=== PATIENT | male | born 1965 | race Caucasian/White ===

== ENCOUNTER 2025-01-30 16:19 | Emergency (ER) | payer BC, SELFPAY ==
--- OUTSIDE RECORDS SUMMARY | 2025-01-30 16:21 | XMS_ITS | Clinical Summary ---
Author Organization [employer] [facility] Address [address] [place] [id number] Care Team Providers Care Pet Caretaker Name Role Phone Angel Banerjee MD Primary Care Provider Stephanie Lizarraga DO Unavailable [phone] Allergies No known active allergies Medications meloxicam 15 mg tabletIndications: Bilateral primary osteoarthritis of knee TAKE 1 TABLET (15 MG) BY MOUTH ONCE DAILY. 90 Tablet 2 03/02/20 22 Active cholecalciferol (VITAMIN D3) 1,000 unit tablet Daily Active anastrozole (ARIMIDEX) 1 mg tablet TAKE 1/2 TABLET BY MOUTH ONCE WEEKLY, DAY AFTER INJECTION 04/22/20 22 Active sildenafil citrate (VIAGRA) 100 mg tabletIndications: Erectile dysfunction of organic origin TAKE ONE TABLET BY MOUTH ONCE DAILY IF NEEDED FOR ERECTILE DYSFUNCTION TAKE 30 MIN. TO 4 HOURS BEFORE SEXUAL ACTIVITY MAX 100/24HRS 9 Tablet 3 07/28/19 23 Active tadalafiL (CIALIS;ADCIRCA) 20 mg tabletIndications: Erectile dysfunction of organic origin TAKE 1 TABLET BY MOUTH ONCE DAILY IF NEEDED FOR ERECTILE DYSFUNCTION. TAKE 30 MINUTES BEFORE SEXUAL ACTIVITY. 6 Tablet 3 08/01/19 24 Active CPAPIndications:OS A (obstructive sleep apnea) CPAP machine for home use at pressure 5-15cmw, nasal mask x1/3month with nasal cushion x2/mo 1 Each 11 10/17/19 24 Active buPROPion (WELLBUTRIN XL) 300 mg Extended-Release tabletIndications: Depression, unspecified depression type Take 1 Tablet (300 mg) by mouth once daily. 90 Tablet 3 07/30/19 Active atorvastatin (LIPITOR) 20 mg tabletIndications: Hyperlipidemia, unspecified hyperlipidemia type Take 1 Tablet (20 mg) by mouth once daily. 90 Tablet 3 07/30/19 Active levothyroxine (SYNTHROID) 75 mcg tabletIndications: Acquired hypothyroidism Take 1 Tablet (75 mcg) by mouth once daily. 90 Tablet 3 07/30/19 Active lisinopril-hydroch lorothiazide, 20-25 mg, (PRINZIDE, ZESTORETIC) 20-25 mg per tabletIndications: Essential hypertension Take 1 Tablet by mouth once daily. 90 Tablet 3 07/30/19 Active Active Problems Problem Noted Date Diagnosed Date Atypical nevus 10/08/2024 Overview (10/08/2024): 10/01/24: Central abdomen, Compound nevus with severe atypia NEEDS EXCISION Melanoma 10/08/2024 Overview (10/08/2024): 10/01/24: RIGHT RETROAURICULAR, Melanoma in situ, lentigo maligna type NEEDS EXCISION a. Margin status: POSITIVE (peripheral) b. See comment Negative for invasive malignancy Low testosterone 04/15/2023 Bilateral primary osteoarthritis of knee 022 Erectile dysfunction 02/25/2015 Impaired fasting glucose 08/24/2013 Unspecified hypothyroidism 09/09/2009 Other and unspecified hyperlipidemia 01/05/2007 Obesity, unspecified 01/05/2007 Major depressive disorder, recurrent episode, un specified 09/14/2006 Unspecified essential hypertension Resolved Problems Problem Noted Date Diagnosed Date Resolved Date Other general symptoms and signs 10/04/2016 11/20/2019 Overview (10/10/2016): Tiredness, sadness, reduced libido and poor erections. History of depression, impaired fasting glucose.obesity. No history of orchitis or injuries. No loss of testicular volume. Testosterone 251-278. HgbA1c 5.4%, TSH, Creatinine, Calcium, liver chemitries normal. 09/2016: LH 1.21, FSH 1.8, AM Cortisol 11.9, Prolactin 8, Total testosterone 246, Free testosterone 8.3. SHBG 16 (10-60) Routine adult health maintenance 08/24/2016 11/20/2019 Overview (08/24/2016): Colonoscopy 08/2016 normal repeat in 10 years Other abnormal glucose 01/05/200711/09 Dysthymic disorder 09/14/2006 7 Encounters Date Type Department Care Team Description 01/30/2025 Nurse Triage [facility] [address] [place] [address] Angel Banerjee MD Chest Pain 01/08/2025 Telephone [facility] [address] [place] [address] Angel Banerjee MD reports (drop off) 12/10/2024 Orders Only [facility] Scanner 1 scan: (1-Ord) RAYUS, WHOLE BODY RADIONUCLIDE BONE SCAN, 12/10/2024 12/10/2024 Orders Only [facility] Scanner 1 scan: (1-Ord) RAYUS, CT CERVICAL SPINE WO CON, 12/10/2024 11/30/2024 Orders Only [facility] Scanner 1 scan: (1-Ord) RAYUS, MRI CERVICAL SPINE WO CON, 11/30/2024 11/19/2024 Telephone [facility] [address] [place] [address] Stephanie Lizarraga, DO Results 11/08/2024 11:30 AM CDT Procedure Only [facility] [address] [place] [id number] Stephanie Lizarraga, Procedure 11/08/2024 Travel 10/31/2024 Telephone [facility] [address] [place] [address] Stephanie Lizarraga, from Last 3 Months Immunizations Immunization Administration Dates Next Due COVID-19 vaccine (FirstRide 30mcg/0.3mL) P F, MDV 09/30/2020,09/03/2020 Influenza, IIV4 04/29/2015 Td, Preservative Free (age >= 7 Years) 7 Tdap 01/11/2006 Zoster (Shingrix-RZV, recombinant) 01/08/2022, Family History Medical History Relation Name Comments Heart Disease Father MS before 55, smoker Psychiatric illness Father Depressi on Stroke Father at 58 of s troke Cancer-colon Neg. 1 Cancer-prostate Neg. 2 Psychiatric illness Son 1 ADD Psychiatric illness Son 2 ADD Relation Name Status Comments Father Neg. 1 Neg. 2 Son 1 Son 2 Social History Tobacco Use Types Packs/Day Years Used Date Smoking Tobacco: Never Smokeless Tobacco: Never Tobacco Cessation:Counseling Given: No Alcohol Use Standard Drinks/Week Comments Yes 0 (1 standard drink = 0.6 oz pur e alcohol) Occassional beer. PHQ-2 Answer Date Recorded PHQ-2 TOTAL SCORE 1 07/30/2024 Social Connections Answer Date Recorded Do you often feel lonely or isolated from those around you? 0 07/30/2024 Financial Resource Strain Answer Date R ecorded Difficulty of Paying Living Expenses 3 07/30/2024 Difficulty of Paying Living Expenses Not on file 07/30/2024 Food Insecurity Answer Date Recorded Do you worry your food will run out before you are able to buy more? 1 07/30/2024 Transportation Needs Answer Date Record ed Does lack of transportation keep you from medica l appointments? 1 07/30/2024 Does lack of transportation keep you from work, meetings or getting things that you need? 1 07/30/2024 Housing Stability Answer Date Recorded What is your housing situation today? 1 07/30/2024 Utilities Answer Date Recorded Do you have trouble paying f or utilities (for example, heat, electricity, water, phone)? 1 07/30/2024 Sex and Gender Information Value Date Recorded Sex Assigned at Not on file Legal Sex Male 5:24 AM [facility]UM [facility] Gender Identity Not on file Sexual Orientation Not on file Obstetrics History Last Filed Vital Signs Vital Sign Reading Time Taken Comments Blood Pressure 134/87 07/30/2024 10:34 AM [facility] Pulse 70 07/30/2024 10:34 AM [facility] Temperature 36.6 C (97.9 F) 12/15/2020 9:17 AM CDT Respiratory Rate - - Oxygen Saturation 95% 07/30/2024 10: 34 AM [facility] Inhaled Oxygen Concentration - - Weight 111.9 kg (246 lb 9.6 oz) 025 10:34 AM [facility] Height 180.3 cm (5' 11) 07/30/2024 10: 34 AM [facility] Body Mass Index 34.39 07/30/2024 10:34 AM [facility] Plan of Treatment Upcoming Encounters Date Type Department Care Team (Late st Contact Info) Description 03/11/2025 11:30 AM CDT Office Visit [facility] [address] [address] [place] [address] [place] [address] Health Maintenance Due Date Last Done Comments Pneumococcal series for age 50+ (1 of 2 - PCV) 1983 COVID-19 vaccine series (4 - season) 2024 06/08/2021, 09/30/2020, 09/03/2020 RSV vaccine for adults or (1 - Risk 60-74 years 1-dose series) 2024 Influenza Vaccine (#1) 2025 04/29/2015 BMI (ht and wt on same day) for age 18+ 07/30/2025 07/30/2024, 10/17/2023, 04/15/2023, Additional history exists Depression screening for age 12+ 07/30/2025 07/30/2024, 01/19/2023, 01/17/2023, Additional history exists Tetanus booster 07/21/2026 07/21/2016, 01/11/2006 Colonoscopy through age 75 08/24/202608/24, 08/24/2016, 08/24/2016 Lipids for age 45-75 07/30/2029 07/30/2024, 03/30/2023, 01/08/2022, Additional history exists Hepatitis C screening for age 18-79 Completed 01/08/2022, 09/07/2010 Zoster (shingles) series for age 50+ Completed 01/08/2022, 01/13/2021 HIV for age 15-65 Completed 03/30/2023 Hepatitis B series for 19+ Aged Out N o longer eligible based on patient's age to complete this topic Procedures Procedure Name Priority Date/Time Associated Diagnosis Comments SCAN-BONE DENSITOMETRY DEXA 12/10/2024 12:00 AM CDT SCAN-CT INTERPRETATION 12/10/2024 12:00 AM CDT SCAN-MRI INTERPRETATION 11/30/2024 12:00 AM CDT PATH TISSUE EXAM Routine 11/08/2024 11:3 0 AM CDT Atypical nevus LIPID PANEL W REFLEX MEASURED LDL Routine 07/30/2024 11:13 AM [facility] Hyperlipidemia, unspecified hyperlipidemia type ANTI HIV 1/2 Routine 03/30/2023 9:44 AM CDT Screening for human immunodeficiency virus ANTI HCV Routine 01/08/2022 12:19 PM CDT Need for hepatitis C screening test COLONOSCOPY 08/24/2016 8:06 AM [facility] from Last 3 Months or Most Recently Relevant to Health Maintenance Results * SCAN-BONE DENSITOMETRY DEXA (12/10/2024 12:00 AM CDT) Anatomical Region Laterality Modality Other us Scanner OTHER Final Result * SCAN-CT INTERPRETATION (12/10/2024 12:00 AM CDT) Anatomical Region Laterality Modality Other us Scanner OTHER Final Result * SCAN-MRI INTERPRETATION (11/30/2024 12:00 AM CDT) Anatomical Region Laterality Modality Other us Scanner OTHER Final Result * PATH TISSUE EXAM (11/08/2024 11:30 AM CDT) Case Report Pathology Report Case: [id number] Authorizing Provider: Stephanie Lizarraga DO Collected: 11/08/2024 1130 Ordering Location: [facility] Received: 11/08/2024 1539 [facility] Pathologist: Chelly Gan MD Specimen: Skin, central abdomen 11/15/2024 12:47 PM CDT [facility] Final Diagnosis A) SKIN, CENTRAL ABDOMEN, RE-EXCISION : 1. Biopsy site change consistent with prior procedure 2. Negative for residual atypical nevus 11/15/2024 12:[address] [facility] at 1247 CDT Clinical Information Chin and reconstruction of a biopsy-proven compound nevus with severe atypia, [id number] 11/15/2024 12:47 PM CDT [facility] Gross Description A) Received in formalin, labeled with the patient's name and central abdomen, is a 3.2 x 1.8 x 0.5 cm un-oriented skin ellipse. There is a 0.8 x 0.6 cm hamilton-white lesion 0.3 cm from the nearest peripheral skin edge. The specimen is inked blue, is serially sectioned and entirely submitted: 1. Tips 2-4. Cross-sections KMN 11/09/2024 11/15/2024 12:47 PM CDT [facility] Microscopic Description The final diagnosis is based on microscopic examination of appropriate sections of all specimens. 11/15/2024 12:47 PM CDT [facility] Additional Information Interpreted at [facility] - [address] [facility] [address], [place] [address] 11/15/2024 12:47 PM CDT [facility] Other SPECIMEN FROM SKIN / Unknown Non-Blood / Unknown 11/08/2024 11:30 AM CDT 11/08/2024 3:33 PM CDT us Stephanie Lizararga DO PATHOLOGY/CYTOLOGY Rosa ramires Result [facility] [address] * (ABNORMAL) LIPID PANEL W REFLEX MEASURED LDL (07/30/2024 11:13 AM [facility]) CHOLESTEROL, TOTAL 165 <200 mg/dL [facility] HDL CHOLESTEROL 52 > OR = 40 mg/dL [facility] TRIGLYCERIDES 165(H) <150 mg/dL [facility] LDL-CHOLESTEROL 87 mg/dL (calc) [facility] Comment: Reference range: <100 Desirable range <100 mg/dL for primary prevention; <70 mg/dL for patients with CHD or diabetic patients with > or = 2 CHD risk factors. LDL-C is now calculated using the Aleksander calculation, which is a validated novel method providing better accuracy than the Friedewald equation in the estimation of LDL-C. Diogo SS et al. LINDEN. 2013;310(19): 6649-0191 (http://education.[employer]/faq/KRG079) CHOL/HDLC RATIO 3.2 <5.0 (calc) [facility] NON HDL CHOLESTEROL 113 <130 mg/dL (calc) [facility] Potter Comment: For patients with diabetes plus 1 major ASCVD risk factor, treating to a non-HDL-C goal of <100 mg/dL (LDL-C of <70 mg/dL) is considered a therapeutic option. Blood BLOOD SPECIMEN / Unknown 07/30/2024 11:13 AM [facility] 07/30/2024 11:14 AM [facility] Angel Banerjee MD CHEMISTRY Final Result [employer] [facility] [address] [place] [address], [facility] [address] [place] [address] * ANTI HIV 1/2 (03/30/2023 9:44 AM CDT) HIV-1/HIV-2 SCREEN Non-Reacti ve Non-Reacti ve 03/30/2023 4:20 PM CDT [facility] Comment:HIV-1 p24 and HIV-1/ HIV-2 Ab Not Detected. Blood BLOOD SPECIMEN / Unknown Venipuncture / Unknown 03/30/2023 9:44 AM CDT 03/30/2023 9:45 AM CDT us Angel Banerjee MD SEND OUTS Final Result [facility] [address] [place] [address], [place] * ANTI HCV (01/08/2022 12:19 PM CDT) HEPATITIS C ANTIBODY Non-React christian Non-React christian 01/09/2022 12:15 AM CDT [facility] Comment:Antibodies to HCV no t detected; does not exclude the possibility of exposure to HCV. Blood BLOOD SPECIMEN / Unknown Venipuncture / Unknown 01/08/2022 12:19 PM CDT 01/08/2022 12:25 PM CDT us Angel Banerjee MD SEND OUTS Final Result Performing Organization Address City/[facility]/ZIP Co de Phone Number [facility] [address] [place] [address], [place] * COLONOSCOPY (08/24/2016 8:06 AM GUM COOK) 08/24/2016 8:06 AM [facility] Narrative Transcriptions Diogo Lee MD - 08/24/2016 9:25 AM CST Patient Name: Gurmeet Forrest Procedure Date: 08/24/2016 Gender: Male Date of : 1965 Admit Type: Outpatient Procedure: Colonoscopy Proceduralist: Diogo Lee MD , Cheli Rome (Nurse) Referring MD: Angel Banerjee Indications/Pre-Op Diagnosis: Screening for colorectal malignant neoplasm, This is the patient's first colonoscopy Medications: Fentanyl 100 micrograms IV, Midazolam 4 mgIV, The level of sedation administered wasmoderate Procedure Description: The patient had risks, benefits and alternatives explained to andgave informed consent. The patient had a stable cardiopulmonary status and judged an adequate candidate for conscious sedation. The [id number] was passed through the anus and advanced tothe cecum, identified by appendiceal orifice and ileocecal valve. The colonoscopy was performed without difficulty. The patient toleratedthe procedure well. The quality of the bowel preparation was good. The ileocecal valve, appendiceal orifice, and rectum were photographed. Complications: No immediate complications. Estimated Blood Loss & Specimen: Estimated blood loss: none. Specimen collected - None Findings: The perianal and digital rectal examinations were normal. There was evidence of a prior end-to-end colo-colonic anastomosis inthe sigmoid colon. This was patent and was characterized by healthy appearing mucosa. The anastomosis was traversed. The exam was otherwise without abnormality on direct and retroflexion views. Impressions/Post-Op Diagnosis: - Patent end-to-end colo-colonic anastomosis, characterized byhealthy appearing mucosa. - The examination was otherwise normal on direct and retroflexionviews. - No specimens collected. Recommendation: - Patient has a contact number available for emergencies. The signsand symptoms of potential delayed complications were discussed with the patient. Return to normal activities tomorrow. Written discharge instructions were provided to the patient. - Resume previous diet. - Continue present medications. - Repeat colonoscopy in 10 years for screening purposes. Moderate Sedation: Moderate (conscious) sedation was administered by the endoscopy nurse and supervised by the endoscopist. The following parameters were monitored: oxygen saturation, heart rate, blood pressure, andresponse to care. Total physician intraservice time was 15 minutes. [facility] flow[facility] for moderate sedation details. Diogo Lee MD 08/24/2016 9:25:12 AM This report has been signed electronically. Note Initiated On: 08/24/2016 8:06 AM Procedure Code(s): --- Professional --- 65307, Colonoscopy, flexible; diagnostic, including collection of specimen(s) bybrushing or washing, when performed (separateprocedure) Diagnosis Code(s): --- Professional --- Z12.11, Encounter for screening formalignant neoplasm of colon Z98.0, Intestinal bypass and anastomosisstatus CPT copyright 2016 [employer]. All rights reserved. The codes documented in this report are preliminary and upon soil conservation aide reviewmay be revised to meet current compliance requirements. Scope In: 9:08:41 AM Scope Withdrawal Time 0 hours 9 minutes 29 seconds Scope Out: 9:20:58 AM Diogo Lee MD PROCEDURE ORD Final Res ult from Last 3 Months or Most Recently Relevant to Health Maintenance Insurance [employer] Care Teams Pet Caretaker Relationship Specialty Start Date End Date Angel Banerjee MD [address] [place] [address] PCP - General 10/02/05 [place] [address] [place] [address] Dermatology 11/19/24
--- OUTSIDE RECORDS SUMMARY | 2025-01-30 16:21 | XMS_ITS | CCD ---
Author Name Interface, [id number] lity Address [address] [place], [place] [address] [place] [address] [facility] Address [address] [place] [address] Care Team Providers Care Ends Down Checker Name Role Phone Marko Leal Unavailable Unavailable Allergies and Adverse Reactions Reason for Visit Medications Problems Social History
--- OUTSIDE RECORDS SUMMARY | 2025-01-30 16:21 | XMS_ITS ---
Author Name Interface, [id number] lity Address [address] [place] [address] [address] [address] [facility] Address [address] [facility] [address] [address] Allergies and Adverse Reactions Medication/Group Name Reaction Severity Date No known allergies Plan Date Type Value 02/23/2022 APPOINTMENT CHART CHECK 5 TN N 02/15/2022 APPOINTMENT LAB 15 MIN 02/15/2022 APPOINTMENT NEW PT CONSULT 6 0 MIN 02/15/2022 LABORDER JAK2 V617F mutat ion analysis panel 02/15/2022 LABORDER Erythropoietin p betty Reason for Visit CHART CHECK 5 MIN Encounters Date Name 02/15/2022 Polycythemia Immunizations Date Name Route Dose Instructions Refusal Reason Stat us Covid-19 vaccine (Pfizer) Completed Covid-19 vaccine (Pfizer) Completed Flu vaccine - Adult Patient declined/rejected Not Administered Covid-19 vaccine (Pfizer) Completed Diagnostic Results Date Type Test Units Lower Limit Upper Limit Result Flag Comments Status Ordered By Specimen Source Lab Address 02/15 Eryth ropoi etin panel Eryth ropoi etin (EPO) , S mIU/mL 2.6 18.5 9.5 Test Performed by:[facility] - [address] [id number] Director: Ilya Marques M.D. Ph.D.; CLIA# [id number] 2 FINAL Marko Juarez 02/15 JAK2 V617F mutat ion yimi sis panel Lab - Other Speci men sourc e Blood FINAL Marko Juarez 02/15 JAK2 V617F mutat ion yimi sis panel JAK2 V617F mutat ion detec tion JAK2 V617F mutatio n not detecte d The absence of the JAK2 V617F mutation does not exclude the possibili ty of amyelopro liferativ e, myelodysp lastic, or mixed myeloprol iferative /myelodys plasticdi sorder. Please correlate with clinical, hematolog ic, and/or bone marrowfin dings. It should be noted that this assay is limited to the JAK2 [id number] tion that accounts for the vast majority of JAK2 mutations . There arecurren tly over 50 JAK2 mutations with most identifie d within exons 12-15. Thesehave been identifie d in patients with polycythe fer vera exclusive ly. Ifadditio nal testing for these non-V617F JAK2 mutations is of interest, pleaseord er JAK2 Exon 12 & Non-V617F Mutations (see test catalog for informati on).As noted in methodolo gy, the assay is validated to a limit of detection of 1.0%mutan t allele.Me thodology : Fluoresce nt allele specific PCR was performed on genomic DNA todetect the presence of the V617F mutation in the JAK2 gene. PCR amplicon wassepara etienne and detected by capillary electroph oresis. Assay validated to a limitof detection of 1.0% mutant allele.FD A required disclaime r: This test was developed and its performan cecharact eristics determine d by the [employer] [facility] yJoshua Ithas not been cleared or approved by the U.S. Food and Drug Administr atcritical access hospital. TheA has determine d, however, that in most cases, such approval is not necessary .This test is used for clinical purposes. It should not be regarded asinvesti gational or for research. Test Performed by:[facility] [address], [address] - [place], [place] [address]Ttlt e : FINAL [facility] Medications Date Name Route Dose Frequency Instructions Start Date End Date Status Cholecalciferol Oral daily active Atorvastatin Oral po 1.0 daily active Mirtazapine Oral po 1.0 daily active Bupropion (XL) Oral 24 hr Tab po 1.0 daily active Levothyroxine Oral po 1.0 daily active Lisinopril Oral po 1.0 daily a ctive Problems Diagnosis Status Date of Diagnosis Resolution Date Polycythemia Active Vital Signs Date Type Value 02/15/2022 Body Temperature 96.40 02/15/2022 Heart Beat 75.00 02/15/2022 Oxygen Saturation 97.00 02/15/2022 Pain Scale 0.00 02/15/2022 Intravascular Systolic 150 02/15/2022 Intravascular Diastolic 85 02/15/2022 Height 70.00 02/15/2022 BMI 39.14 02/15/2022 BSA 2.38 02/15/2022 Respiratory Rate 18.00 02/15/2022 Weight 272.80
[2025-01-30 16:23] VITALS: BP 139/77; PULSE 80; RESP 18; TEMP 36.8; O2SAT 95; BMI 34.9
--- NOTE | 2025-01-30 16:34 | ED.GENADULT ---
HPI - General Adult General Time Seen by Provider: 16:34 Date Seen: 01/30/25 Chief complaint: Chest Pain Stated complaint: possible heart attack, from [facility] Time Seen by Provider: 01/30/25 16:25 Source: patient and RN notes reviewed Mode of arrival: ambulatory Limitations: no limitations History of Present Illness HPI narrative: This 5-year-old male is referred in by [facility] triage for some symptoms that had him concerned about heart disease. He recently lost a friend younger in a age to a heart attack in his sleep. Patient himself has had no prior cardiac history. There is strong family history of cardiac disease. He for the past couple of weeks has been having some burning in his chest which he describes as indigestion. He has been taking Tums and Pepcid which does seem to help it. Can happen in the morning, can happen later in the day. He does not feel any regurgitant symptoms. No nausea or vomiting, no abdominal pain. This has reportedly been happening daily but unsure if it is related to what he eats. He notes it will go away within 10 minutes of taking Tums. He has also had about 2 episodes in last week worries felt just a little pressure tightness in his chest. This happened at work and he was not sure what he was doing at the time, felt hot and sweaty but was also hot day. A 2nd time happened when he was just sitting in his office. Both of these spells have been within the last 5 days, maybe lasted 10-15 minutes but is not completely remembering how long they lasted. He has also noted pain in his back by his right shoulder blade. It did happen in the office today coming he is feeling it right now. This is been going on for about the past week. Does not really noted it changing with movement or any respiratory changes with it. It does not seem to be in conjunction with any of the other symptoms he is experiencing. He does state that he has had this before, thought it was just musculoskeletal. As far as his family history, his dad of a stroke at age 57, had prior heart disease. Jessica has had paternal great uncles of heart disease. His paternal grandfather at age 53 year of a heart attack. He had a stress test in 2019 which was negative. He was advised to come to the ER. He notes no shortness of breath, no respiratory symptoms, no abdominal pain, no nausea or vomiting, no fevers or chills, is not been ill with anything. He has not had any calf swelling or calf pain, no history of DVT or blood clots. Outside of the family history, patient does have hypertension and hyperlipidemia for which she is treated. Related Data Home Medications ?Medication ?Instructions ?Recorded ?Confirmed atorvastatin 20 mg tablet 20 mg PO DAILY 05/02/23 01/30/25 bupropion HCl 300 mg 24 hr tablet, 300 mg PO DAILY 05/02/23 01/30/25 extended release levothyroxine 75 mcg tablet 75 mcg PO DAILY 05/02/23 01/30/25 lisinopril 20 1 tab PO DAILY 05/02/23 01/30/25 mg-hydrochlorothiazide 25 mg tablet sildenafil 100 mg tablet 100 mg PO DAILY PRN intercourse 05/02/23 01/30/25 tadalafil 20 mg tablet 20 mg PO DAILY PRN intercourse 05/02/23 01/30/25 tadalafil 5 mg tablet 5 mg PO DAILY 05/02/23 05/16/23 testosterone cypionate 200 mg/mL 60 mg subcut 2XW 05/02/23 01/30/25 intramuscular oil Previous Rx's ?Medication ?Instructions ?Recorded omeprazole 20 mg capsule,delayed 20 mg PO DAILY #14 caps 01/30/25 release Allergies Allergy/AdvReac Type Severity Reaction Status Date / Time No Known Drug Allergies Allergy Verified 01/30/25 16:30 Review of Systems Status of ROS: Reports: 6 or more systems reviewed and unremarkable except as noted in History and below Exam Const: Vital Signs, click to edit/add: Vital Signs - 24 hr 01/30/25 16:23 Temperature 98.2 F Pulse Rate [Right Pulse Oximeter] 80 Respiratory Rate 18 Blood Pressure [Ri ght Upper Arm] 139/77 Pulse Oximetry 95 Oxygen Delivery Me thod Room Air This 59-year-old male is alert, interactive, no apparent distress. Skin is morales but no rash, skin is not sweaty or diaphoretic. Sclera clear, conjugate gaze, speech normal. Neck is thick but do not appreciate jugular venous distension, no cervical adenopathy, no thyromegaly masses or nodules. Symmetrical facial function. Lungs are clear, good air entry, wheeze or crackles come no tachypnea, no accessory muscle use. He has no midline tenderness of his back. He states the area of pain is along the right inferior rhomboids but do not feel any mass, no significant tightness of the muscles. He has full range of motion of his right shoulder without any difficulty. CV regular rate and rhythm, no murmur, normal S1-S2, S3-S4. Abdomen is soft, mildly obese, nontender, nondistended, no organomegaly. He has no lower extremity edema, no calf tenderness. He was ambulatory into the ED of his own accord. Documenting provider has reviewed patient's vital signs: yes Course Course ED Course: Reviewed with patient that his back certainly sounds like it could be musculoskeletal. He did get an EKG on arrival not looks reassuring. We will get a troponin. Will also look at a D-dimer, did talk about vascular disease and aneurysm/dissection. Will look at a portable chest x-ray, full complement of labs. Have reviewed with him if his workup here is reassuring and no concerns, will likely recommend he get repeat cardiac stress testing and then consideration for EGD with his indigestion symptoms. May recommend a PPI on discharge if he does discharge. Reevaluation(s) Time of Reevaluation #1: 18:05 Reevaluation #1: Reviewed with patient that his initial labs are normal outside of the liver transaminases. We reviewed that the most common cause of this in the [place] is fatty liver disease; this can be worked up further outpatient at this time. He had no abdominal tenderness on exam, doubt any acute condition like cholecystitis or cholelithiasis. We did review that outpatient workup would be warranted, consideration for limited liver ultrasound. Likewise, would recommend that he get an H pylori checked, consideration for an EGD. With his family history he certainly needs repeat cardiac stress testing, his primary could talk to Cardiology in consider doing a calcium score in him. We did review that if his follow-up EKG and troponin are fine, will discharge to home. He states he really is not having any symptoms now but has just been lying there. Time of Reevaluation #2: 18:45 Reevaluation #2: Follow-up point of care troponin is 0.00. Patient will be discharged to home. Vital Signs Vital signs: Initial Vital Signs Temperature 98.2 F 01/30/25 16:23 Temperature Source Temporal Artery Scan 01/30/25 16:23 Pulse Rate 80 01/30/25 16:23 Pulse Rhythm Regular 01/30/25 16:23 Pulse Strength 3+ Normal 01/30/25 16:23 Respiratory Rate 18 01/30/25 16:23 Blood Pressure 139/77 01/30/25 16:23 Blood Pressure Mean 97 01/30/25 16:23 Blood Pressure Position Sitting 01/30/25 16:23 Pulse Oximetry 95 01/30/25 16:23 Oxygen Delivery Method Room Air 01/30/25 16:23 Vital Signs Temperature 98.2 F 01/30/25 16:23 Pulse Rate 80 01/30/25 16:23 Respiratory Rate 18 01/30/25 16:23 Blood Pressure 139/77 01/30/25 16:23 Pulse Oximetry 95 01/30/25 16:23 Oxygen Delivery Method Room Air 01/30/25 16:23 Temperature 98.2 F 01/30/25 16:23 Pulse Rate 80 01/30/25 16:23 Respiratory Rate 18 01/30/25 16:23 Blood Pressure 139/77 01/30/25 16:23 Pulse Oximetry 95 01/30/25 16:23 Oxygen Delivery Method Room Air 01/30/25 16:23 Medical Decision Making Lab Data Labs: Lab Results 01/30/25 Range/Units 16:55 WBC 9.52 (4.50-11.00) K/uL RBC 6.29 H (4.30-5.90) m/uL Hgb 17.8 H (13.5-17.5) gm/dL Hct 52.0 (37.0-53.0) % MCV 83 (80-100) fL MCH 28 (26-34) pg MCHC 34 (32-36) gm/dL RDW Coeff of Soniya 14.1 (11.5-15.5) % Plt Count 219 (140-440) K/uL Neut % (Auto) 70.7 (42.0-72.0) % Lymph % (Auto) 18.5 L (20-44) % [place] % (Auto) 8.7 (0.0-11.0) % Eos % (Auto) 1.4 (0.0-7.0) % Baso % (Auto) 0.5 (0.0-3.0) % Neut # (Auto) 6.73 (1.7-7.0) K/uL Lymph # (Auto) 1.80 (0.90-2.90) K/uL [place] # (Auto) 0.80 (0.00-0.90) K/UL Eos # (Auto) 0.13 (0.00-0.50) K/uL Baso # (Auto) 0.05 (0.00-0.30) K/uL Abs Immat Gran (auto) 0.02 (0.00-0.30) K/uL Imm/Tot Granulo (auto) 0.2 % D-Dimer Quant (PE/DVT) 0.29 (0.00-0.50) ug/ml Sodium 136 (135-149) mmol/L Potassium 4.0 (3.6-5.1) mmol/L Chloride 103 (96-114) mmol/L Carbon Dioxide 27 (20-32) mmol/L Anion Gap 6 L (7-15) mEq/L BUN 21 (7-30) mg/dL Creatinine 1.1 (0.5-1.5) mg/dL Estimated Creat Clear 73.74 Estimated GFR 77 ml/min Glucose 97 (60-115) mg/dL Lactate 1.1 (0.5-1.9) mmol/L Calcium 9.6 (8.4-10.6) mg/dL Magnesium 2.0 (1.5-2.6) mg/dL Total Bilirubin 1.1 (0.1-1.5) mg/dL Direct Bilirubin 0.3 (0.0-0.5) mg/dL AST 65 H (12-35) U/L ALT 90 H (4-50) U/L Alkaline Phosphatase 76 (40-150) U/L Troponin I < 0.01 (0.01-0.04) ng/mL C-Reactive Protein < 0.5 L (0.5-1.0) mg/dL NT-Pro-B Natriuret Pep < 20 (See Note) pg/mL Total Protein 7.1 (6.0-8.3) g/dL Albumin 4.4 (3.3-5.0) g/dL Lipase 99 (23-300) U/L Imaging Data Chest x-ray: Attestation: I have reviewed the pertinent imaging results. Radiologist's impression: Patient: ESSENCE CH Facility:?[facility] Patient ID:?[id number] Site Patient ID:?[id number]. Site :?[id number] Study:?XRay-Chest 1V-01/30/2025 5:00:52 PM Ordering Physician:Rosie Cabrera Final Report: INDICATION: Chest pain TECHNIQUE: Chest radiograph 1 view COMPARISON: None FINDINGS: The sensitivity and specificity of the exam are moderately limited by the patient`s body habitus. Mediastinum: The mediastinum is normal in appearance. The heart silhouette is normal in size and morphology. Lung: Both lungs are unremarkable in appearance with small lung volumes. No sign of pleural effusion seen. No pneumothorax is identified. Bone and Soft tissue: Unremarkable for age. IMPRESSION: 1. No acute cardiopulmonary disease is seen. Dictated by: Willem Herrera MD @ 01/30/2025 17:24:29 (Electronic Signature) ECG Data Attestation: I personally reviewed and interpreted this ECG as follows: (Normal sinus rhythm, 76 beats per minute, no evidence of infarct or ischemia.) Prior ECG tracings: not available for review Interpretation: Follow-up EKG at 6:18 p.m. is showing normal sinus rhythm, 76 beats per minute, no acute ischemic change, no infarct. Discharge Plan Discharge Clinical Impression: Elevation of levels of liver transaminase levels, Pain in right rhomboid muscle Chest pain Qualifiers: Chest pain type: unspecified Qualified Code(s): R07.9 - Chest pain, unspecified Patient Disposition: Home, Self-Care Condition: Stable Instructions: Chest Pain (ED), Indigestion (ED), Non-Alcoholic Fatty Liver Disease (ED) Additional Instructions: You need to follow-up with your primary care provider as soon as possible, preferably within 3-5 days. First and foremost, do need to discuss doing cardiac stress testing or further evaluation for the potential of underlying heart disease. You do have significant risk factors. We can tell you that you have not had a heart attack and there is no evidence of active ongoing ischemia during your evaluation in the ER. Likewise, D-dimer was normal which makes things like aneurysm issue/vessel dissection or blood clots very unlikely. I highly encourage further cardiac workup, talk to her primary about this. In the meantime, if you have escalation of symptoms or concerns, please return to the ER. You certainly have symptoms that sound suggestive of potential reflux or dyspepsia. We will put you on omeprazole daily for 2 weeks. Talk to your primary care provider about having an H pylori test done, consider having EGD done if ongoing symptoms. Your liver enzymes were mildly elevated, the most common thing here in the [place] is fatty liver disease. Outpatient limited ultrasound of the liver could be done in the near future, these level should be followed. Things to help improve this are dietary with weight loss, low-fat diet. Will not advocate increased exercise until your cardiac workup has been completed. The area in your back does seem to be consistent with pain in the rhomboid muscle, this is a frequent area of pain. Certainly can try some Tylenol, I recommend ice to this area. Taking at tennis ball and rolling the muscle in this area can sometimes help some people; do not do this if it makes her symptoms worse. Can talk to your primary care provider about this further as well. Activity Level: Activity as Tolerated Prescriptions: New omeprazole 20 mg capsule,delayed release(DR/EC) 20 mg PO DAILY Qty: 14 0RF No Action bupropion HCl 300 mg tablet extended release 24 hr 300 mg PO DAILY lisinopril-hydrochlorothiazide 20-25 mg tablet 1 tab PO DAILY levothyroxine 75 mcg tablet 75 mcg PO DAILY atorvastatin 20 mg tablet 20 mg PO DAILY tadalafil 5 mg tablet 5 mg PO DAILY testosterone cypionate 200 mg/mL oil 60 mg subcut 2XW sildenafil 100 mg tablet 100 mg PO DAILY PRN (Reason: intercourse) tadalafil 20 mg tablet 20 mg PO DAILY PRN (Reason: intercourse) Follow Up/Referrals: Angel Banerjee MD [Primary Care Provider, Family Practice] Stand Alone Forms: [employer] Info Instructions
--- NOTE | 2025-01-30 16:46 | CRLHL7_ITS ---
For Patients: As a result of the Century Cures Act, medical imaging exams and procedure reports are released immediately into your electronic medical record. You may view this report before your referring provider. If you have questions, please contact your health care provider. INDICATION: Chest pain TECHNIQUE: Chest radiograph 1 view COMPARISON: None FINDINGS: The sensitivity and specificity of the exam are moderately limited by the patient`s body habitus. Mediastinum: The mediastinum is normal in appearance. The heart silhouette is normal in size and morphology. Lung: Both lungs are unremarkable in appearance with small lung volumes. No sign of pleural effusion seen. No pneumothorax is identified. Bone and Soft tissue: Unremarkable for age. IMPRESSION: 1. No acute cardiopulmonary disease is seen. Dictated by: Willem Herrera MD @ 01/30/2025 17:24:29 (Electronically Signed)
--- OUTSIDE RECORDS SUMMARY | 2025-01-30 16:55 | XMS_ITS ---
Author Name Interface, [id number] lity Address [address] [place], [place] [id number] [facility] Address [address] [place] [id number] Allergies and Adverse Reactions Plan Reason for Visit Encounters Immunizations Diagnostic Results Medications Problems Vital Signs
--- OUTSIDE RECORDS SUMMARY | 2025-01-30 16:55 | XMS_ITS | CCD ---
Author Name Interface, [id number] lity Address [address] [place] [address] [address] [place] [address] Organization [facility] Address [address] [facility] [address] [place] [address] Care Team Providers Care Ornament Setter Name Role Phone Marko Leal Unavailable Unavailable Allergies and Adverse Reactions Medication/Group Name Reaction Severity Date No known allergies Reason for Visit CHART CHECK 5 MIN Medications Date Name Route Dose Frequency Instructions Start Date End Date Status Lisinopril Oral po 1.0 daily a ctive Mirtazapine Oral po 1.0 daily active Cholecalciferol Oral daily active Bupropion (XL) Oral 24 hr Tab po 1.0 daily active Atorvastatin Oral po 1.0 daily active Levothyroxine Oral po 1.0 daily active Problems Diagnosis Status Date of Diagnosis Resolution Date Polycythemia Active Social History Date Name Value 02/15/2022 Sex Male
--- OUTSIDE RECORDS SUMMARY | 2025-01-30 16:55 | XMS_ITS | CCD ---
Author Name Interface, [id number] lity Address [address] [place] [address] [address] [place] [address] Organization [facility] Address [address] [facility] [address] [place] [address] Care Team Providers Care Form Building Supervisor Name Role Phone Marko Leal Unavailable Unavailable [...]
--- OUTSIDE RECORDS SUMMARY | 2025-01-30 16:55 | XMS_ITS ---
Author Name Interface, [id number] lity Address [address] [place] [address] [address] [address] [facility] Address [address] [facility] [address] [address] Allergies and Adverse Reactions Medication/Group Name Reaction Severity Date No known allergies Plan Date Type Value 02/23/2022 APPOINTMENT CHART CHECK 5 NH N 02/15/2022 APPOINTMENT LAB 15 MIN 02/15/2022 APPOINTMENT NEW PT CONSULT 6 0 MIN 02/15/2022 LABORDER JAK2 [id number] mutat ion analysis panel 02/15/2022 LABORDER Erythropoietin p betty Reason for Visit CHART CHECK 5 MIN Encounters Date Name 02/15/2022 Polycythemia Immunizations Date Name Route Dose Instructions Refusal Reason Stat us Covid-19 vaccine (Pfizer) Completed Covid-19 vaccine (Pfizer) Completed Covid-19 vaccine (Pfizer) Completed Flu vaccine - Adult Patient declined/rejected Not Administered Diagnostic Results Date Type Test Units Lower Limit Upper Limit Result Flag Comments Status Ordered By Specimen Source Lab Address 02/15 Eryth ropoi etin panel Eryth ropoi etin (EPO) , S mIU/mL 2.6 18.5 9.5 Test Performed by:[facility] - [address] [id number] Director: Ilya Marques M.D. Ph.D.; CLIA# [id number] FINAL Marko Juarez 02/15 JAK2 [id number] [...] this assay is limited to the JAK2 [id number] tion that accounts for the vast majority [...] performan cecharact eristics determine d by the [facility] yJoshua Ithas not been cleared or approved by the U.S. Food and Drug Administr at[facility]. TheA has determine d, however, that in most cases, such approval is not necessary .This test is used for clinical purposes. It should not be regarded asinvesti gational or for research. Test Performed by:[facility] [id number], [address] - [place], [place] [address]Njgm e : FINAL [facility] Medications Date Name Route Dose Frequency Instructions [...]
[2025-01-30 17:09] LABS: Lactate* 1.1 mmol/L (0.5-1.9)
[2025-01-30 17:10] LABS: Hematocrit 52.0 % (37.0-53.0); Hemoglobin* 17.8 gm/dL (13.5-17.5); Immature Granulocytes Abs Auto 0.02 K/uL (0.00-0.30); Immature Granulocytes Pct Auto 0.2 %; Lymphocytes Absolute Auto 1.80 K/uL (0.90-2.90); Mean Corpuscular HGB Conc 34 gm/dL (32-36); Mean Corpuscular Hemoglobin 28 pg (26-34); Mean Corpuscular Volume 83 fL (80-100); RDW Coefficient of Variation % 14.1 % (11.5-15.5); Red Blood Count 6.29 m/uL (4.30-5.90); White Blood Count* 9.52 K/uL (4.50-11.00)
[2025-01-30 17:11] LABS: Slide Review Reflex No
[2025-01-30 17:24] LABS: Albumin* 4.4 g/dL (3.3-5.0); Chloride* 103 mmol/L (96-114)
[2025-01-30 17:25] LABS: Potassium* 4.0 mmol/L (3.6-5.1); Sodium* 136 mmol/L (135-149)
[2025-01-30 17:27] LABS: Blood Urea Nitrogen* 21 mg/dL (7-30); Creatinine* 1.1 mg/dL (0.5-1.5); Est. Creatinine Clearance* 73.74; Estimated Glomerular Filt Rate 77 ml/min
[2025-01-30 17:28] LABS: Alanine Aminotransferase* 90 U/L (4-50); Alkaline Phosphatase* 76 U/L (40-150); Anion Gap 6 mEq/L (7-15); Aspartate Amino Transferase* 65 U/L (12-35); Bilirubin Direct* 0.3 mg/dL (0.0-0.5); Bilirubin Total* 1.1 mg/dL (0.1-1.5); Calcium* 9.6 mg/dL (8.4-10.6); Carbon Dioxide* 27 mmol/L (20-32); D Dimer Quantitative* 0.29 ug/ml (0.00-0.50); Glucose* 97 mg/dL (60-115); Total Protein* 7.1 g/dL (6.0-8.3)
[2025-01-30 17:37] LABS: NT Pro B Type NatriureticPept* < 20 pg/mL (See Note)
[2025-01-30 18:46] LABS: Troponin, Point-of-Care* 0.00 ng/ml (0.01-0.04)
== END 2025-01-30 18:51 | disposition home or self-care (01) ==
PROVIDERS: Emergency Provider Family Medicine; PCP Family Medicine
DX: R07.9 Chest pain, unspecified (principal); S46.811A Strain of other muscles, fascia and tendons at shoulder and upper arm level, right arm, initial encounter; R74.01 Elevation of levels of liver transaminase levels
CPT/HCPCS: 36415; 71045; 80053; 82248; 83605; 83690; 83735; 83880; 84484; 85025; 85379; 86140; 93005; 94761; 99284